=== PATIENT | male | born 1965 | race Caucasian/White ===

== ENCOUNTER 2023-12-01 23:54 | Inpatient (IN) | payer OTHER, SELFPAY ==
[2023-12-01 18:33] VITALS: BP 197/135
[2023-12-01 19:11] VITALS: BP 191/126
[2023-12-01 19:27] VITALS: BMI 36.2
[2023-12-01 20:00] VITALS: BP 191/126
--- NOTE | 2023-12-01 21:12 | ED.GENMED ---
History of Present Illness
General
Chief Complaint: Breathing Problem
Source: patient
Exam Limitations: none
Time Seen by Provider: 12/01/23 20:19
Nursing documentation reviewed up to this point in time: agreed with
Travel History
Have you had any contact with someone who has COVID-19?: No
Do you have any symptoms of coronavirus? Fever > 100 degrees, chills, cough, shortness of breath, sore throat, loss of taste or smell, muscle aches, or headache?: No
History of Present Illness
History of Present Illness:
Patient presents to ED secondary to increasing left-sided neck pain and sore throat over the past 3 days. Denies fever or chills. Denies nausea or vomiting. Denies headache. Denies dizziness. Denies chest pain. Patient reports difficulty
swallowing secondary to pain along with swelling. Denies previous history of similar symptoms.
Review of Systems
Review of Systems
Allergies reviewed?: Yes
All Other Systems: ROS reviewed and negative except as documented in HPI and ROS
Constitutional: Reports no symptoms; Denies fever
EENT: Reports sore throat and other (Throat swelling)
Respiratory: Reports trouble breathing
Cardiac: Reports no symptoms
ABD/GI: Reports no symptoms
: Reports no symptoms
Musculoskeletal: Reports no symptoms
Skin: Reports no symptoms
Neurological: Reports no symptoms
Phy Exam
Physical Exam
Physical Exam:
Physical Exam
General: mild painful distress, not acutely ill. afebrile.
Head: nc/at. eomi
Neck: supple. no meningeal signs. left tonsillar exudate noted with swelling. Left anterior cervical lymphadenopathy noted.
Heart: s1/s2 regular rate and rhythm, no murmur. equal radial pulses.
Lungs: no acute respiratory distress. clear bilaterally
Abdomen: normal bowel sounds. not tender.
Neuro: alert and oriented. no focal neurological deficits
Skin: no rash
Psychiatric: well kept. interactive and cooperative
Extremities: no edema. no calf tenderness.
Scores
Heart Failure Risk
Heart Failure Risk Score: Not Applicable
Course
Orders/Labs/Results
Orders:
Orders
12/01/23 21:07
Dexamethasone Sod Phosphate [Decadron] 10 mg IV NOW STA
12/01/23 21:13
0.9% Sodium Chloride 1000 ml [Nss] 1,000 ml IV BOLUS
12/01/23 21:18
Basic Metabolic Panel Urgent
Complete Blood Count/No Diff Urgent
Rapid Strep Group A Urgent
AB Source: Throat/Pharynx
Specimen Description:
Date Specimen was Collected: 12/01/23
Time Specimen was Collected: 21:10
12/01/23 21:22
Acetaminophen 1000MG/100Ml [Ofirmev] 1,000 mg in 100 ml IV ONCE
Acetaminophen IV Indication:: ED Narcotic Naive Pt-ONCE
12/01/23 22:24
CT Neck With Iv Contrast Urgent
Comment:
Reason For Exam: throat swelling/pain
12/01/23 23:25
Admit/Transfer Patient As Directed
Co-Sign Provider:
Level of Care: Inpatient admission
Assign to:: IMU- Intermediate Care
Physician / Group: Hospitalist
Diagnosis: Laryngitis
Reason for Hospitalization: Laryngitis
Expected length of stay greater than two midnights?: Yes
ELOS- Estimated Length of Stay in days: 3
I certify the patient meets the requirements for IP care: Yes
Code Status As Directed
Resuscitation Status: Full Code
Ampicillin/Sulbactam 3 G [Unasyn] 3 gm 0.9% Sodium Chloride 100 ml [Nss] 100 ml IV NOW
12/01/23 23:36
COVID-19 Antigen Stat
Source: Nasal Swab
Influenza A+B Rapid Molecular Stat
AB Source: Nasal Swab
Specimen Description:
RSV [Respiratory Syncytial Virus] Stat
AB Source: Nasal Swab
Specimen Description:
Date Specimen was Collected: 12/01/23
Time Specimen was Collected: 23:29
12/02/23 01:04
Acetaminophen [Tylenol] 650 mg PO Q4HPRN PRN
Albuterol Nebs [Ventolin Nebules] 2.5 mg INH R Q4HPRN PRN
MethylPREDNISolone PF [Solu-Medrol Pf] 40 mg IV Q12@1000,2200
VANCOMYCIN Pharmacy to Dose [VANCOCIN Pharmacy to Dose] 1 each Pharmacy To Prepare [Call Pharmacy To Prepare] 0 ml IV PER PROTOCOL
12/02/23 01:04
Consult Notification Routine
Specialty to Notify: ENT
ENT CONSULT Routine
Consulting Provider: David De Souza
Was physician already notified: No
Reason for Consult: Laryngitis with severe swelling
MRSA Screen Routine
AB Source: Nose
Specimen Description:
Activity As Directed
Activity Level: Out of Bed-Early Mobility
Vital Signs As Directed
Frequency: Per unit guidelines
DX Deep Vein Thrombosis Video Routine
12/02/23 Breakfast
Full Liquids
Flush Continuous pump feedings with water (mL/hr): 25
Basic Metabolic Panel IN AM
Complete Blood Count/With Diff IN AM
Procalcitonin IN AM
PCT Algorithmm Indication: Respiratory
TSH IN AM
Piperacillin/Tazo 3.375 Gram [Zosyn] 3.375 gram in 50 ml IV Q6H
CR Chest - 2 Views Routine
Comment:
Reason For Exam: cough, congestion
12/02/23 18:00
Enoxaparin Sodium [Lovenox] 40 mg SC QPM
Abnormal Lab Results
12/01/23
21:18
WBC 12.2 H 10^3/uL
(4.8-10.8)
RBC 4.55 L 10^6/uL
(4.70-6.10)
MCH 31.2 H pg
(27.0-31.0)
Glucose 102 H mg/dl
(70-99)
12/01/23 21:18
12/01/23 21:18
Vital Signs
Initial and Last Documented VS:
Initial Vital Signs
Temp Pulse Resp BP Pulse Ox
98.3 F 101 18 197/135 98
12/01/23 18:33 12/01/23 18:33 12/01/23 18:33 12/01/23 18:33 12/01/23 18:33
Last Documented Vital Signs
Temp Pulse Resp BP Pulse Ox
98.4 F 91 19 172/117 95
12/02/23 01:20 12/02/23 01:30 12/02/23 01:30 12/02/23 01:16 12/02/23 01:30
MDM/Problems Addressed
MDM/Problems Addressed:
CT report reviewed and discussed with patient. Patient reports mild improvement symptoms after treatment. Patient remains hemodynamically stable without any hypoxia nor acute respiratory distress. However given significant, severe airway
compromise noted along with inflammatory changes on CT scan, patient will be admitted for IV antibiotics and further treatment.
*Critical Care Note
Total Time (30-74mins, 75-104mins- exclusive of procedures): Not Applicable
ED Attending Note
-
Portions of this chart may have been created with voice recognition software.� Occasional wrong word or��sound alike� substitutions may have occurred due to the inherent limitations of voice recognition software.
Discharge Plan
Departure
Patient Disposition: Admit
Date of Disposition: 12/01/23
Time of Disposition: 23:12
Presentation/result/management discussed w/ accepting MD/DO: Hospitalist
Discharge Problem:
Acute tonsillitis, Dyspnea
Interventions
Interventions:
*Risk Screen - Suicide Last Done: 12/01/23 18:33
*General Assessment Last Done: 12/01/23 19:27
*Neglect/Abuse Screening Last Done: 12/01/23 18:33
ED- Fall Risk Assessment Last Done: 12/02/23 01:09
*ED COVID-19 Vaccine History Last Done: 12/01/23 18:33
*Nursing Disposition Last Done: 12/02/23 01:09
ED- Cardiac Assessment Last Done: 12/01/23 19:31
ED-EENT Assessment Last Done: 12/01/23 23:41
ED- Pulmonary Assessment Last Done: 12/01/23 23:41
Discharge Date and Time
Discharge Date/Time: 12/02/23 01:09
[2023-12-01 21:27] LABS: Hematocrit 39.5 % (39.0-52.0); Hemoglobin 14.2 g/dL (13.0-18.0); Mean Corp Hgb Conc. 35.9 g/dL (33.0-37.0); Mean Corpuscular Hgb 31.2 pg (27.0-31.0); Mean Corpuscular Volume 86.8 fL (80.0-94.0); Mean Platelet Volume 10.1 fL (7.4-10.4); Platelet Count 191 10^3/uL (130-400); Red Blood Cell Count 4.55 10^6/uL (4.70-6.10); Red Cell Dist. Width 12.3 % (11.5-14.5); White Blood Cell Count 12.2 10^3/uL (4.8-10.8)
[2023-12-01] MEDS: DECADRON 10 MG IV (21:27)
[2023-12-01] MEDS: OFIRMEV 100 IV (21:27)
[2023-12-01] MEDS: NSS 1000 IV (21:27)
[2023-12-01 21:38] LABS: Blood Urea Nitrogen 11 mg/dl (9-20); Calcium 9.3 mg/dl (8.4-10.2); Carbon Dioxide 24 mmol/L (22-30); Chloride 105 mmol/L (98-107); Estimated Creatinine Clearance 90 ml/min; Glucose 102 mg/dl (70-99); Potassium 4.1 mmol/L (3.5-5.1); Sodium 136 mmol/L (135-145); eGFR > 60.00
[2023-12-01 22:17] VITALS: BP 184/110
--- NOTE | 2023-12-01 23:34 | HPS.HSE ---
Family Physician
-
Family Physician: NOT KNOW UNKNOWN - PT DOES
Chief Complaint
-
throat swelling
History of Present Illness
58yo M withpout significant PMHx came with 3 days of throat swelling. FOund laryngitis and pharyngitis with phlegmon and severe airway stenosis on CT, significvantly improved after steroids, able to convey conversation in full sentences and has no
SOB. Was sick for 2.5 weeks after his family member had pneumonia.
Medical History
Past Medical History
Past Medical History: Reports None
Past Surgical History: Reports None
Social History
Tobacco: Non-smoker
Alcohol: Occasional
Drug: None
Family History
Family History: Not pertinent
Allergies / Home Medications
Allergies reflects when Allergies were last updated in [facility].
Home Medications with original date entered in [facility]
Allergy/Medication List:
Allergies
Allergy/AdvReac Type Severity Reaction Status Date / Time
NKA - No Known Allergies Allergy Unknown Uncoded 12/01/23 18:42
Home Medications
No Meds [No Current Medications] 12/01/23
Review of Systems
-
A 12 point ROS was completed and negative except as noted: Yes
EENT: Reports See HPI
Respiratory: Reports See HPI
Physical Exam
Vital Signs
Vital Signs
Temp Pulse Resp BP Pulse Ox
98.3 F 98 21 184/110 95
12/01/23 18:33 12/01/23 23:15 12/01/23 23:15 12/01/23 22:17 12/01/23 23:03
Physical Exam
General: Well Developed and Well Nourished
HEENT: NormoCephalic, Anicteric and Moist mucous membranes
Respiratory: Clear; No Wheezes, Rales or Rhonchi
Cardiac: S1/S2 and Regular Rhythm
GI: Soft, Non Tender and Non Distended
Rectal: Brown
Musculoskeletal: No Clubbing, No Cyanosis and No Edema
Skin: Warm; No Dry or Rash
Neuro: Awake, Alert, Oriented and AO x 3
Psych: Calm
Laboratory Results
-
12/01/23 21:18
12/01/23 21:18
Data Reviewed
-
CT Scan: Report Reviewed by me
Impression/Plan
-
#Severe tonzillitis, laryngitis and pharingitis with extensive flegmon without abscess, but with severe airway narrowing
Vanco/Zosyn
Solumedrol
IMU admission
Check Strep throat, COVID-19, RSV, influenza, MRSA screen
ENT consult
Chest XR
Check AM procalcitonin
DVT ppx on lovenox
FUll code
This encounter required moderate level of complexity for medical decision making
[2023-12-02] VITALS (20 sets, daily range): BP systolic 130–201; BP diastolic 90–147; BMI 35.9
[2023-12-02 00:13] LABS: COVID-19 Antigen Negative (Negative)
[2023-12-02] MEDS: UNASYN IV (00:22)
--- NOTE | 2023-12-02 01:37 | PTCARENOTE ---
Patient arrived to room 3354. CHG wiped down, tele applied showing SR/ST heart rate 90-110s. BP 174/117. Pt states his BP is usually at 160s. Reports minimal pain to throat area. 93-97% on room air. Pt talking and denies any SOB. Able to ambulate to
BR to void. States he is feeling better since the steroid he received. Oriented to room and use of call mayfield. Admission questions started. Pt made aware if his throat is feeling tight or closing again to let staff know right away, pt agrees. Call
mayfield is within reach.
[2023-12-02] MEDS: SOLU-MEDROL PF 40 MG IV ×3 (01:50→23:12)
[2023-12-02] MEDS: VANCOCIN 540 MG IV (01:55)
[2023-12-02] MEDS: ZOSYN 50 IV ×4 (05:35→23:14)
[2023-12-02 05:45] LABS: % Basophils 0.2 % (0-2); % Immature Granulocytes 0.4 % (0-0.5); % Lymphocytes 11.5 % (20.5-51.1); % Monocytes 0.7 % (1.7-9.3); % Neutrophils 87.2 % (42.2-75.2); Absolute Lymphocytes 1.2 10^3/uL (1.2-3.4); Absolute Monocytes 0.1 10^3/uL (0.1-0.6); Absolute Neutrophils 8.8 10^3/uL (1.4-6.5); Hematocrit 38.5 % (39.0-52.0); Hemoglobin 13.5 g/dL (13.0-18.0); Mean Corp Hgb Conc. 35.1 g/dL (33.0-37.0); Mean Corpuscular Volume 88.3 fL (80.0-94.0); Mean Platelet Volume 10.4 fL (7.4-10.4); Nucleated Red Blood Cells % 0 % (-); Platelet Count 202 10^3/uL (130-400); Red Blood Cell Count 4.36 10^6/uL (4.70-6.10); White Blood Cell Count 10.1 10^3/uL (4.8-10.8)
[2023-12-02 06:09] LABS: Blood Urea Nitrogen 13 mg/dl (9-20); Calcium 9.3 mg/dl (8.4-10.2); Carbon Dioxide 21 mmol/L (22-30); Chloride 106 mmol/L (98-107); Estimated Creatinine Clearance 108 ml/min; Glucose 173 mg/dl (70-99); Potassium 4.8 mmol/L (3.5-5.1); Sodium 136 mmol/L (135-145); eGFR > 60.00
[2023-12-02 06:18] LABS: Procalcitonin < 0.05 ng/ml (0.0-0.25)
[2023-12-02 06:39] LABS: TSH 0.45 uIU/ml (0.47-4.68)
--- NOTE | 2023-12-02 09:02 | W.PN.HOSP.TC ---
Today's Communication/Plan
-
ENT eval today. Continue IV antibiotics and IV steroids. Start antihypertensives.
Assessment / Plan
Assessment / Plan
Physical Exam
General: Well Developed and Well Nourished
HEENT: Throat swelling on the left side, enlarged tonsils on the left side, mild tenderness left side mandible but no erythema outside. NormoCephalic, Anicteric and Moist mucous membranes
Respiratory: Clear; No Wheezes, Rales or Rhonchi
Cardiac: S1/S2 and Regular Rhythm
GI: Soft, Non Tender and Non Distended
Rectal: Brown
Musculoskeletal: No Clubbing, No Cyanosis and No Edema
Skin: Warm; No Dry or Rash
Neuro: Awake, Alert, Oriented and AO x 3
Psych: Calm
A/P:
#Severe tonsillitis, laryngitis and pharyngitis with extensive flegmon without abscess, but with severe airway narrowing
-Clinically airway intact today on 12/01 but cont to monitor closely
-Reviewed neck CT and chest x-ray
-Continue IV Zosyn
-Stop vancomycin
-MRSA screen negative
-WBC 12.2 down to 10.1
-Continue IV Solu-Medrol 40 mg every 12 hours
-ENT planning scoping him today.
-Checked Strep throat, COVID-19, RSV, influenza, MRSA screen
#Hypertension
-Start Norvasc 5 mg daily
-Also started IV hydralazine 10 mg IV x 1 now and then as needed for any systolic blood pressure more than 140
-He does have the stress of the situation superimposed on his blood pressure but he has been diagnosed with hypertension in the past and has been able to taken off medications after lifestyle modifications. Will monitor.
-Obtain EKG baseline for hypertension evaluation.
#Obesity
-Lifestyle changes modifications warranted
DVT prophylaxis
Lovenox SQ
CODE STATUS
Full code
Total time spent on today's encounter was 52 minutes which included time spent in counseling the patient/family regarding diagnosis and treatment plan as listed above, goals of care, and symptom management. Case was discussed with nursing staff,
specialists, and care coordinators/case management. All labs and imaging personally reviewed by me. Remainder the time spent in detailed review of previous records, lab data, imaging, and other medical provider documentation.
Anticipated Discharge: 24 - 48 hours
Subjective/Interval History
-
Date of Service: December 02, 2023
Patient feels better overall in terms of his throat. Denies sialorrhea, able to swallow today, no stridor. No shortness of breath, afebrile. No chest pain, no headaches.
Objective Data
-
Labs:
Laboratory Results
12/01/23 12/02/23
21:18 05:34
WBC 12.2 H 10.1
Hgb 14.2 13.5
Hct 39.5 38.5 L
Plt Count 191 202
Sodium 136 136
Potassium 4.1 4.8
Chloride 105 106
Carbon Dioxide 24 21 L
BUN 11 13
Creatinine 1.2 1.0
Glucose 102 H 173 H
Calcium 9.3 9.3
Vital Signs:
Vital Signs
Temp Pulse Resp BP Pulse Ox
97.5 F 78 20 165/105 97
12/02/23 03:41 12/02/23 08:00 12/02/23 08:00 12/02/23 08:00 12/02/23 08:41
I&O
12/01/23 12/02/23 12/03/23
06:59 06:59 06:59
Intake Total 590 / 590
Balance 590 / 590
Review of Systems
-
All other systems: Reviewed and negative
--- NOTE | 2023-12-02 10:02 | PHA.VAN.IN ---
Addendum entered and electronically signed by Aditya Del Real, [facility] 12/02/23 10:09:
MRSA PCR of nares ordered
Original Note:
Assessment
- Assessment
Renal Function: Unknown baseline
Maximum Temperature: 98.4 12/02/23 at 01:20
Minimum Temperature: 97.5 12/02/23 at 07:40
Concomitant Antimicrobials: Piperacillin-tazobactam
AUC Dosing Plan
- Dosing Variables
Dosing Weight (kg): 120
Dosing CrCl (ml/min): 108
Vd coefficient (L/kg): 0.6
- Empiric Dosing
Initial / Loading Dose: Vancomycin 2000mg IV x 1 given today at 01:55
Maintenance Regimen: Vancomycin 1000mg IV Q8hrs starting today at 22:00
Estimated AUC (mcg*h/mL): 464
Estimated Peak (mcg*h/mL): 26
Estimated Trough (mcg/ml): 14
Estimated Half Life (H): 7
- Monitoring
No levels ordered at this time: Levels will be ordered according to vancomycin dosing protocol
Pharmacokinetics Vancomycin I
- -
Patient Age: 58
Patient Sex: Male
Vancomycin Day #: 1
Indication: Pulmonary/Respiratory
Requesting Provider: Dr Abdulaziz Renae
Pertinent Antimicrobial Allergies:
No antibiotic allergies
Height / Weight:
Height 6 ft
Actual Weight 120 kg
IBW in k.6
Adjusted BW in k.6
Pertinent Past Medical History: BMI~36
- Vital Signs / Lab Results
Temp Pulse Resp BP Pulse Ox
97.5 F 78 20 165/105 97
12/02/23 07:40 12/02/23 08:00 12/02/23 08:00 12/02/23 08:00 12/02/23 08:41
Lab Results - Hematology
12/01/23 12/02/23
21:18 05:34
WBC 12.2 H 10.1
Lab Results - Chemistry
12/01/2324
21:18 05:34
BUN 11 13
Creatinine 1.2 1.0
Estimated Creat Clear 90 108
Microbiology Results
12/01/23 23:36 Respiratory Syncytial Virus Culture - Final
Nasal Swab Negative for Respiratory Syncytial Virus.
A false negative result may be obtained with a specimen
collected early in the acute phase. If symptoms persist, a
new specimen should be tested.
12/01/23 23:36 Influenza Types A & B (VERITO) - Final
Nasal Swab Negative for Influenza A & B, NAAT
Negative results must be combined with clinical observations
and patient history.
Nucleic Acid Amplification test (NAAT)performed on the
[employer] platform.
12/01/23 21:18 Streptococcus Rapid Screen - Final
Throat/Pharynx Rapid Strep Screen (Group A) Negative
--- NOTE | 2023-12-02 12:53 | CON.MD ---
Consultation - Medical
-
Patient seen and evaluated at the bedside.
Full consult dictated.
A/M-61-lvtc-old male with acute pharyngitis/tonsillitis.
-Patient developed tonsillitis following upper respiratory infection.
-Progressed over 72 hours starting on Monday.
-Seen in ER last evening, CAT scan showed extensive swelling throughout throat.
-Has been on steroids and antibiotics since admission.
-Feeling much better today.
-Patient able to swallow, speaking without difficulty, no shortness of breath.
-Denies fevers or chills.
-Exam shows mild to moderate swelling along left side of throat extending down into hypopharynx.
-No evidence of airway obstruction on flexible fiberoptic scope at the bedside.
-Recommend continued IV steroids and antibiotics overnight.
-If patient is stable tomorrow morning he can likely be discharged on oral medications.
-Would allow patient to get his 10 AM dose of Decadron prior to discharge.
-Patient can start steroid taper orally on Monday. Would use prednisone 40 mg x 3 days then 30 mg x 3 days then 20 mg x 3 days then 10 mg x 3 days then stop.
-Patient can also be switched to oral antibiotic, either Augmentin or cefdinir for 14 days total.
-Patient can follow-up in office in 2 weeks.
[2023-12-02] MEDS: APRESOLINE 10 MG IV ×2 (13:19→23:14)
[2023-12-02] MEDS: NORVASC 5 MG PO (13:20)
--- NOTE | 2023-12-02 14:40 | PTCARENOTE ---
Pt reports improvement in speech and swallow. Denies pain; Ambulates without assistance; 97% on RA; Elevated BP, Pt had maintained around 180/100's - Patient insisted that was his norm and stated that he had been on HTN meds prior and came off of
them due to 'side effects' (but could not elaborate). Hospitalist made aware and Hydralazine and Norvasc were ordered. Pt agreeable to taking BP meds at this time. Will continue to monitor and assess.
--- NOTE | 2023-12-02 14:57 | CM ---
Patient with Dx Severe tonsillitis, laryngitis and pharyngitis with Phlegmon. Room air. Receiving Iv Solumedrol, IV Zosyn.
Met with patient who resides with his in a 2 story house.
The patient has been independent in ADLs and ambulation.
He is active and works.
The patient has no DME or prior VN.
PCP - none, offered PCP list and patient declined
Pharmacy - [facility]
No CM d/c needs identified.
Plan home.
[2023-12-02] MEDS: LOVENOX 40 MG SC (17:47)
--- NOTE | 2023-12-02 23:40 | PTCARENOTE ---
Pt reports feeling much better. Non-prod cough slightly increased after laryngoscopy at bedside today. Remains on room air. Hypertensive, asymptomatic. IV hydralazine PRN per NOV. Up ad nura independently. Denies any pain. NSR on tele. Call [facility]field
within reach. Pt calls appropriately.
[2023-12-03] VITALS: BP 171/108
[2023-12-03 02:00] VITALS: BP 160/94
[2023-12-03 03:31] VITALS: BMI 35.7
[2023-12-03 04:00] VITALS: BP 164/101
[2023-12-03 05:37] LABS: % Basophils 0.1 % (0-2); % Immature Granulocytes 0.4 % (0-0.5); % Lymphocytes 11.5 % (20.5-51.1); % Monocytes 1.7 % (1.7-9.3); % Neutrophils 86.3 % (42.2-75.2); Absolute Immature Granulocytes 0.1 10^3/uL (0-0.05); Absolute Monocytes 0.3 10^3/uL (0.1-0.6); Absolute Neutrophils 14.9 10^3/uL (1.4-6.5); Hematocrit 40.2 % (39.0-52.0); Mean Corp Hgb Conc. 34.8 g/dL (33.0-37.0); Mean Corpuscular Hgb 30.8 pg (27.0-31.0); Mean Corpuscular Volume 88.5 fL (80.0-94.0); Mean Platelet Volume 10.6 fL (7.4-10.4); Nucleated Red Blood Cells % 0 % (-); Platelet Count 254 10^3/uL (130-400); Red Blood Cell Count 4.54 10^6/uL (4.70-6.10); Red Cell Dist. Width 11.9 % (11.5-14.5); White Blood Cell Count 17.3 10^3/uL (4.8-10.8)
[2023-12-03] MEDS: ZOSYN 50 IV ×2 (05:49→13:07)
[2023-12-03 06:02] LABS: Blood Urea Nitrogen 21 mg/dl (9-20); Calcium 9.9 mg/dl (8.4-10.2); Carbon Dioxide 20 mmol/L (22-30); Chloride 107 mmol/L (98-107); Estimated Creatinine Clearance 90 ml/min; Glucose 152 mg/dl (70-99); Potassium 4.5 mmol/L (3.5-5.1); Sodium 138 mmol/L (135-145); eGFR > 60.00
[2023-12-03 06:26] VITALS: BP 167/95
[2023-12-03] MEDS: NORVASC 5 MG PO ×2 (07:59→14:26)
[2023-12-03] MEDS: SOLU-MEDROL PF 40 MG IV (10:12)
--- NOTE | 2023-12-03 10:20 | W.PN.HOSP.TC ---
Today's Communication/Plan
-
Discharge planning today
Assessment / Plan
Assessment / Plan
Physical Exam
General: Well Developed and Well Nourished
HEENT: Throat swelling on the left side, enlarged tonsils on the left side, mild tenderness left side mandible but no erythema outside. NormoCephalic, Anicteric and Moist mucous membranes
Respiratory: Clear; No Wheezes, Rales or Rhonchi
Cardiac: S1/S2 and Regular Rhythm
GI: Soft, Non Tender and Non Distended
Rectal: Brown
Musculoskeletal: No Clubbing, No Cyanosis and No Edema
Skin: Warm; No Dry or Rash
Neuro: Awake, Alert, Oriented and AO x 3
Psych: Calm
A/P:
#Severe tonsillitis, laryngitis and pharyngitis with extensive flegmon without abscess, but with severe airway narrowing
-Clinically airway intact today on 12/01 but cont to monitor closely
-Reviewed neck CT and chest x-ray
-Continue IV Zosyn--> change to cefdinir today (apparently Augmentin was one of the causes of renal failure and transplant in the past--?)
-Stop vancomycin
-MRSA screen negative
-WBC 12.2 down to 10.1
-Continue IV Solu-Medrol 40 mg every 12 hours
-ENT planning scoping him today.
-Checked Strep throat, COVID-19, RSV, influenza, MRSA screen
#Hypertension
-Start Norvasc 5 mg daily--> increase to 10 mg daily
-Also started IV hydralazine 10 mg IV x 1 now and then as needed for any systolic blood pressure more than 140
-He does have the stress of the situation superimposed on his blood pressure but he has been diagnosed with hypertension in the past and has been able to taken off medications after lifestyle modifications. Will monitor.
-Obtain EKG baseline for hypertension evaluation.
#History of renal transplant
-renal function stable
-not on any immunosuppressants
#Obesity
-Lifestyle changes modifications warranted
DVT prophylaxis
Lovenox SQ
CODE STATUS
Full code
Anticipated Discharge: Today
Subjective/Interval History
-
Date of Service: December 03, 2023
Patient denies chest pain or shortness of breath. Afebrile. No problems swallowing or pain on his throat.
Objective Data
-
Labs:
Laboratory Results
12/03/23
05:07
WBC 17.3 H
Hgb 14.0
Hct 40.2
Plt Count 254 D
Sodium 138
Potassium 4.5
Chloride 107
Carbon Dioxide 20 L
BUN 21 H
Creatinine 1.2
Glucose 152 H
Calcium 9.9
Vital Signs:
Vital Signs
Temp Pulse Resp BP Pulse Ox
97.5 F 77 17 167/95 96
12/03/23 07:57 12/03/23 06:26 12/03/23 06:26 12/03/23 06:26 12/03/23 06:26
I&O
12/02/23 12/03/23 12/04/23
06:59 06:59 06:59
Intake Total 590 / 590 1280 / 1280
Balance 590 / 590 1280 / 1280
[2023-12-03] MEDS: APRESOLINE 10 MG IV ×2 (13:07→13:54)
--- NOTE | 2023-12-03 14:41 | W.DCSUMMARY ---
Discharge Summary
Discharge Data
Date of Admission: 12/01/23
Date of Discharge: 12/03/23
-
Pending Results: No
Hospital Course
Patient 58 years old man with history of renal transplant in the past and obesity who came into the hospital with acute pharyngitis and tonsillitis. He had a upper respiratory for followed by development of his symptoms prior to his presentation.
He had a CT scan that showed extensive swelling and possible airway compromise but he remained stable from our perspective. ENT was consulted. He was given IV steroids and IV antibiotics. He had a flexible fiberoptic scope at bedside by ENT that
shows no evidence of airway obstruction. ENT recommended to switch his antibiotic and steroids to oral and he can be discharged home. He also had high blood pressures for which we started him on antihypertensive. Blood pressure is trending down
but we recommended to continue follow-up as outpatient very closely. Otherwise, blood cultures no growth and afebrile. He is going to be discharged with stable condition today.
Discharge duration: 35 minutes
Discharge Plan
-
Patient Disposition: Home (Routine Discharge)
Discharge Diagnosis/Procedures: Acute pharyngitis/tonsillitis. Hypertension. Obesity. Leukocytosis. History of renal transplant.
Diet: Low Cholesterol
Activity: As tolerated
Driving Restrictions: As prior to admission
Blood Work: Please PCP to order CBC, BMP within 1 week.
Referrals:
Primary care, provider [Other] (See less than 1 week)
David De Souza MD [Active] - in one to two weeks
Prescriptions:
New
amlodipine 10 mg Tablet
10 mg PO DAILY 30 Days Qty: 30 0RF
prednisone 10 mg Tablet
See Rx Instructions .ROUTE .COMPLEX Qty: 45 0RF
Rx Instructions:
Take By Mouth:
50 mg daily x3 days, 40 mg daily x3 days,
30 mg daily x3 days, 20 mg daily x3 days,
10 mg daily x3 days
cefdinir 300 mg Capsule
300 mg PO Q12 14 Days Qty: 28 0RF
Discharge Orders:
Discharge Patient (As Directed); Ordered 12/03/23
Ordered By: Tylor Felder
Discharge Date and Time
Discharge Date/Time: 12/03/23 16:00
--- NOTE | 2023-12-03 14:49 | CM ---
Patient with Dx Severe tonsillitis, laryngitis and pharyngitis with Phlegmon. Room air.
Spoke with patient who was preparing for discharge. The patient says he feels ready for discharge home today. His mother will provide a ride home.
No CM d/c needs identified.
Plan home today.
--- NOTE | 2023-12-03 16:09 | PTCARENOTE ---
Discharge instructions reviewed with patient. Patient originally prescribed Augmentin PO after discharge. Patient stated that there was concern that Augmentin was related to his kidney failure that resulted in need for kidney transplant. Discussed
concern with Dr. Felder. Augmentin discontinued and Cefdinir ordered instead. Pt escorted by wheelchair to mother's car.
== END 2023-12-03 16:00 | disposition home or self-care (01) | DRG 153 ==
LOC: IMU 23:54
PROVIDERS: ADMITTING PHYSICIAN Internal Medicine; ATTENDING PHYSICIAN Hospitalist; CONSULT PHYSICIAN Otolaryngology; EMERGENCY PHYSICIAN Emergency Medicine
DX: J03.90 Acute tonsillitis, unspecified (principal); Z94.0 Kidney transplant status; J04.0 Acute laryngitis; N18.9 Chronic kidney disease, unspecified; E66.9 Obesity, unspecified; I12.9 Hypertensive chronic kidney disease with stage 1 through stage 4 chronic kidney disease, or unspecified chronic kidney disease; Z11.52 Encounter for screening for COVID-19; Z68.35 Body mass index [BMI] 35.0-35.9, adult
CPT/HCPCS: 70491; 71046; 80048; 84145; 84443; 85025; 85027; 87070; 87147; 87502; 87641; 87807; 87811; 87880; 93005; 96361; 96365; 96375; 99285; Q9967